=== PATIENT | male | born 1950 | race Caucasian/White ===

== ENCOUNTER 2019-11-22 01:01 | Inpatient (IN) | payer MEDICARE, MEDICAID ==
[2019-11-22] VITALS (8 sets, daily range): BP systolic 112–156; BP diastolic 62–78
[~2019-11-22] VITALS: Ht 175.3 cm; Wt 64.6 kg
[2019-11-22] MEDS ORDERED: FLUVOXAMINE MA100 MG PO (01:12)
[2019-11-22] MEDS ORDERED: OXYBUTYNIN CHLOR5 M1 ORAL (01:12)
[2019-11-22] MEDS ORDERED: BENZTROPINE ME0.5 MG PO (01:12)
[2019-11-22] MEDS ORDERED: FAMOTIDINE20 MG ORAL (01:12)
[2019-11-22] MEDS ORDERED: RISPERDAL2 MG ORAL (01:12)
[2019-11-22] MEDS ORDERED: LISINOPRIL10 MG ORAL (01:12)
--- NOTE | 2019-11-22 01:15 | NUR ---
ED Nurse Note: pt presents to ED via EMS arrival LAFD RA 29 for SOB x 5 hours. pt comes from [facility]. per EMS, pt's SpO2 was 85% on room air so they put him on a non rebreather mask which brought his saturation to 96%. pt came with IV in R hand that is patent and intact. pt is AO x 3 and approrpiately follows commands. he has a cough but does not know how long he has had it for.
[2019-11-22] MEDS: Ipratropium 0.02% Inh Soln 2.5ml UD HHN SCH ×3 (01:18→02:39)
[2019-11-22] MEDS: Albuterol ud Inhalation HHN SCH ×3 (01:18→02:39)
--- NOTE | 2019-11-22 01:20 | Emergency Room Report ---
History of Present Illness General Chief Complaint: Dyspnea/Respdistress Source: Medical Record, EMS Present Illness HPI 69-year-old male presents ED for evaluation. Brought in by EMS from psychiatric facility [id number]. Reported shortness of breath tonight. Congested. O2 sats low on room air. Placed on nonrebreather. Patient states he does feel better. Denies chest pain. Still states he feels short of breath. Denies fevers or chills. Has a cough. Productive. Patient is a poor historian and is unable to provide additional history. No other aggravating relieving factors. No other associated symptoms Allergies: Coded Allergies: No Known Allergies (Unverified , 12/09/15) Patient History Past Medical History: HTN, psych hx Pertinent Family History: none Social History: Denies: smoking, alcohol use, drug use Immunizations: UTD Reviewed Nursing Documentation: PMH: Agreed; PSxH: Agreed Nursing Documentation-PMH Hx Hypertension: Yes Hx Gastrointestinal Problems: Yes History Of Psychiatric Problem: Yes Review of Systems All Other Systems: limited Physical Exam Vital Signs Date Time Temp Pulse Resp B/P (MAP) Pulse Ox O2 Delivery O2 Flow Rate FiO2 11/22/19 01:03 98.8 98 20 112/74 (87) 94 15.0 Sp02 EP Interpretation: reviewed, normal General Appearance: no apparent distress, alert, GCS 15, non-toxic Head: normocephalic, atraumatic Eyes: bilateral eye normal inspection, bilateral eye PERRL ENT: hearing grossly normal, normal pharynx, no angioedema, normal voice Neck: full range of motion, supple/symm/no masses Respiratory: chest non-tender, decreased breath sounds, crackles, speaking full sentences, wheezing Cardiovascular #1: regular rate, rhythm, no edema Cardiovascular #2: 2+ carotid (R), 2+ carotid (L), 2+ radial (R), 2+ radial (L) , 2+ dorsalis pedis (R), 2+ dorsalis pedis (L) Gastrointestinal: normal bowel sounds, non tender, soft, non-distended, no guarding, no rebound Rectal: deferred Genitourinary: normal inspection, no CVA tenderness Musculoskeletal: back normal, normal range of motion, gait/station normal, non- tender Neurologic: alert, motor strength/tone normal, oriented x3, sensory intact, responsive, speech normal Psychiatric: judgement/insight normal, memory normal, mood/affect normal, no suicidal/homicidal ideation Reflexes: 3+ bicep (R), 3+ bicep (L), 3+ tricep (R), 3+ tricep (L), 3+ knee (R) , 3+ knee (L) Skin: other - see nursing skin notes Lymphatic: no adenopathy Medical Decision Making Diagnostic Impression: Primary Impression: Pneumonia Qualified Codes: J18.9 - Pneumonia, unspecified organism Additional Impression: Dyspnea Qualified Codes: R06.00 - Dyspnea, unspecified ER Course Hospital Course 69-year-old M presenting to ED with respiratory distress, wheezing and crackles Differential diagnoses include: Pneumonia, CHF exacerbation, pneumothorax, fluid overload Clinical course Patient placed on stretcher. On hospital monitor with hypoxia on room air. After initial history and physical, I ordered nebulizer treatments. I ordered labs, IV fluids, EKG, chest x-ray, blood cultures, UA. Patient placed on nasal cannula with O2 saturation improving Labs -leukocytosis noted, hemoglobin/hematocrit stable, electrolytes okay, lactate okay troponins negative, BNP ok EKG - NSR, no acute ischemic changes interpreted by me CXR - L lower lobe infiltrate Patient O2 sat remains above 90% on nasal cannula. given abx Case discussed with Dr. Rockwell and he agreed to the patient to his service for further care and support I feel this is a highly complex case requiring extensive working including EKG/ Rhythm strip, Xray/CT/US, Blood/urine lab work, repeat exams while in ED, and administration of strong opiates/narcotics for pain control, admission to hospital or close patient follow up. Diagnosis - pneumonia. dyspnea Patient admitted to telemetry in serious condition Labs Test 11/22/19 01:11 White Blood Count 12.0 K/UL (4.8-10.8) Red Blood Count 5.13 M/UL (4.70-6.10) Hemoglobin 15.7 G/DL (14.2-18.0) Hematocrit 45.9 % (42.0-52.0) Mean Corpuscular Volume 90 FL (80-99) Mean Corpuscular Hemoglobin 30.7 PG (27.0-31.0) Mean Corpuscular Hemoglobin Concent 34.3 G/DL (32.0-36.0) Red Cell Distribution Width 12.8 % (11.6-14.8) Platelet Count 179 K/UL (150-450) Mean Platelet Volume 7.5 FL (6.5-10.1) Neutrophils (%) (Auto) 78.4 % (45.0-75.0) Lymphocytes (%) (Auto) 12.5 % (20.0-45.0) Monocytes (%) (Auto) 7.8 % (1.0-10.0) Eosinophils (%) (Auto) 0.5 % (0.0-3.0) Basophils (%) (Auto) 0.7 % (0.0-2.0) Sodium Level 137 MMOL/L (136-145) Potassium Level 4.2 MMOL/L (3.5-5.1) Chloride Level 102 MMOL/L (98-107) Carbon Dioxide Level 35 MMOL/L (21-32) Anion Gap 0 mmol/L (5-15) Blood Urea Nitrogen 19 mg/dL (7-18) Creatinine 1.2 MG/DL (0.55-1.30) Estimat Glomerular Filtration Rate > 60 mL/min (>60) Glucose Level 104 MG/DL (74-106) Lactic Acid Level 0.90 mmol/L (0.4-2.0) Calcium Level 8.7 MG/DL (8.5-10.1) Total Bilirubin 0.7 MG/DL (0.2-1.0) Aspartate Amino Transf (AST/SGOT) 20 U/L (15-37) Alanine Aminotransferase (ALT/SGPT) 18 U/L (12-78) Alkaline Phosphatase 119 U/L (46-116) Troponin I 0.000 ng/mL (0.000-0.056) Pro-B-Type Natriuretic Peptide 39 pg/mL (0-125) Total Protein 7.3 G/DL (6.4-8.2) Albumin 3.1 G/DL (3.4-5.0) Globulin 4.2 g/dL Albumin/Globulin Ratio 0.7 (1.0-2.7) EKG Diagnostic Results Rate: normal Rhythm: NSR ST Segments: no acute changes ASA given to the pt in ED: No Rhythm Strip Diag. Results EP Interpretation: yes Rhythm: NSR, no PVC's, other - PACs Chest X-Ray Diagnostic Results Chest X-Ray Diagnostic Results : Chest X-Ray Ordered: Yes # of Views/Limited/Complete: 1 View Indication: Shortness of Breath EP Interpretation: Yes Interpretation: no effusion, no pneumothorax, other - consolidation LLL Impression: Other - pneumonia Electronically Signed by: Electronically signed by Jesus Rice MD Last Vital Signs Date Time Temp Pulse Resp B/P (MAP) Pulse Ox O2 Delivery O2 Flow Rate FiO2 11/22/19 01:03 98.8 98 20 112/74 (87) 94 15.0 Status: improved Disposition: ADMITTED INPATIENT Condition: Serious Jesus Rice MD Nov 22, 2019 01:20
[2019-11-22 01:31] LABS: BASOPHILS % (AUTO) 0.7 % (0.0-2.0); EOSINOPHILS % (AUTO) 0.5 % (0.0-3.0); HEMATOCRIT 45.9 % (42.0-52.0); HEMOGLOBIN 15.7 G/DL (14.2-18.0); LYMPHOCYTES % (AUTO) 12.5 % (20.0-45.0); MEAN CORPUSCULAR VOLUME 90 FL (80-99); MONOCYTES % (AUTO) 7.8 % (1.0-10.0); NEUTROPHILS % (AUTO) 78.4 % (45.0-75.0); PLATELET COUNT 179 K/UL (150-450); RED BLOOD COUNT 5.13 M/UL (4.70-6.10); RED CELL DISTRIBUTION WIDTH 12.8 % (11.6-14.8)
[2019-11-22 01:44] LABS: ANION GAP 0 mmol/L (5-15); BLOOD UREA NITROGEN 19 mg/dL (7-18); CALCIUM 8.7 MG/DL (8.5-10.1); CARBON DIOXIDE 35 MMOL/L (21-32); CHLORIDE 102 MMOL/L (98-107); CREATININE 1.2 MG/DL (0.55-1.30); POTASSIUM 4.2 MMOL/L (3.5-5.1); SODIUM 137 MMOL/L (136-145)
--- NOTE | 2019-11-22 01:45 | NUR ---
ED Nurse Note: pt unable to provide a urine sample at this time. ERMD aware
[2019-11-22 01:55] LABS: ALANINE AMINOTRANSFERASE 18 U/L (12-78); ALBUMIN 3.1 G/DL (3.4-5.0); ALBUMIN/GLOBULIN RATIO 0.7 (1.0-2.7); ALKALINE PHOSPHATASE 119 U/L (46-116); ASPARTATE AMINO TRANSFERASE 20 U/L (15-37); BILIRUBIN,TOTAL 0.7 MG/DL (0.2-1.0)
--- NOTE | 2019-11-22 02:46 | NUR ---
ED Nurse Note: repoort given to ALBERT Solorzano
--- NOTE | 2019-11-22 02:47 | NUR ---
NURSE NOTES: Received pt from ALBERT Altman. Pt transported from ER via gurney. Pt placed on bus driver/monitor, vitals taken, and placed on 4 L oxygen via NC, with HOB elevated. Bed locked in lowest position, bed alarm on, call light within reach. Fall precautions implemented. Pt has moderately garbled speech. Pt able to verbalize name, day, location, but not why he came in the hospital. Oriented pt to room and floor. Will contact HCP for admission orders. Iv site running abx from ER.
[2019-11-22] MEDS ORDERED: Albuterol/Ipratropium 3ml neb HHN PRN (06:30)
[2019-11-22] MEDS: D5 1/2NS 1,000 ML IV SCH ×2 (06:44→22:58)
--- NOTE | 2019-11-22 07:31 | NUR ---
NURSE NOTES: Received patient from ALBERT Solorzano. in bed with episodes of forgetfulness. Pt is A/Ox1. sack sewer is in placed; pt is in NSR. IV site intact, asymptomatic, and patent. Bed is in the lowest position and locked. Call light and beside table are within reach. No signs/symptoms of acute distress noted at this time. Pt denies any pain. Will continue with the plan of care.
--- NOTE | 2019-11-22 07:31 | NUR ---
report given to ALBERT burris. Endorsed plan of care Addendum: 11/22/19 at 0731 by JENIFFER BARRIENTOS RN report given to ALBERT Romo. Endorsed plan of care
[2019-11-22] MEDS: Lisinopril 10mg tab ORAL SCH (08:49)
[2019-11-22] MEDS: Heparin 5000 units/ml inj SUBQ SCH ×2 (08:51→22:04)
[2019-11-22 09:04] LABS: BASOPHILS % (AUTO) 0.7 % (0.0-2.0); EOSINOPHILS % (AUTO) 0.6 % (0.0-3.0); HEMATOCRIT 45.7 % (42.0-52.0); HEMOGLOBIN 15.4 G/DL (14.2-18.0); LYMPHOCYTES % (AUTO) 11.6 % (20.0-45.0); MEAN CORPUSCULAR VOLUME 90 FL (80-99); MONOCYTES % (AUTO) 7.8 % (1.0-10.0); NEUTROPHILS % (AUTO) 79.3 % (45.0-75.0); PLATELET COUNT 183 K/UL (150-450); RED BLOOD COUNT 5.08 M/UL (4.70-6.10); RED CELL DISTRIBUTION WIDTH 13.1 % (11.6-14.8); WHITE BLOOD COUNT 10.4 K/UL (4.8-10.8)
[2019-11-22 09:22] LABS: ANION GAP 3 mmol/L (5-15); BLOOD UREA NITROGEN 17 mg/dL (7-18); CALCIUM 8.3 MG/DL (8.5-10.1); CARBON DIOXIDE 33 MMOL/L (21-32); CHLORIDE 104 MMOL/L (98-107); CREATININE 1.1 MG/DL (0.55-1.30); POTASSIUM 4.1 MMOL/L (3.5-5.1); SODIUM 140 MMOL/L (136-145)
[2019-11-22] MEDS: Levofloxacin 500mg tab ORAL SCH (11:15)
--- NOTE | 2019-11-22 11:15 | Diagnostic Imaging Report ---
Indication: Shortness of breath Technique: One view of the chest Comparison: none Findings: Patient is rotated to the right. The lungs and pleural spaces are clear. The heart size is normal. There are degenerative changes of the thoracic spine Impression: No acute process
--- NOTE | 2019-11-22 13:40 | NUR ---
PT EVALUATION NOTE Patient seen for initial evaluation. Patient presents with generalized weakness and decreased balance which impairs patient's ability to perform mobility tasks safely. Patient requires SBA for bed mobility and CGA for transfers with FWW. Patient able to ambulate 150 ft with CGA/min assist and FWW, cues for safety precautions and posture. Patient will benefit from skilled inpatient PT intervention to address strength, balance and safety for improved level of independence with functional mobility. Recommend return to board and care facility at discharge once medically cleared by MD. Addendum: 11/22/19 at 1418 by KEYSHAWN HANNA PT Amended: Links added.
[2019-11-22] MEDS ORDERED: cefTRIAXone 1 GM in D5W 55 ML IVPB SCH (14:00)
--- NOTE | 2019-11-22 14:30 | NUR ---
*-* INSURANCE *-* ALL AVAILABLE CLINICALS HAVE BEEN FAXED TO: [employer] REF# [id number] PH#[phone] FAX#[phone] REVIEWS/CLINICALS
--- NOTE | 2019-11-22 14:59 | NUR ---
NURSE NOTES: pt alert with confusion, getting out of bed, unsteady, patient was placed by the station, bed alarm on, call light in reached, PT taina completed, then reported that pt pulling his heplock, and heart monitor, Dr Cruz returned call and was informed and gave order for restraint.
--- NOTE | 2019-11-22 15:12 | NUR ---
CASE MANAGEMENT:REVIEW 69 YR OLD MALE BIBA FROM [facility] CC: SOB. 85% ON RA SI: PNEUMONIA. DYSPNEA 98.7 98 20 112/74 94% ON 15L VIA NON REBREATHER WBC+12.0 IS: DUONEB HHN Q15MIN 500CC NS BOLUS IV LEVAQUIN CHEST XRAY : TO TELEMETRY DCP: FROM [facility]
--- NOTE | 2019-11-22 17:00 | Consultation ---
DATE OF CONSULTATION: 11/22/2019 PULMONARY CONSULTATION CONSULTING PHYSICIAN: Wu Cruz M.D. HISTORY OF PRESENT ILLNESS: This is a 69-year-old male who comes to hospital with shortness of breath. He states he is short of breath and reports chest congestion. He was found to be borderline hypoxic on room air per ER report. Per my review of records, he has saturated 98% and currently is on low-flow oxygen. The patient is unable to provide any further history. Denies any chest pain. Denies fever or chills. He reports a cough. PAST HISTORY: Hypertension, underlying psychiatric history. SOCIAL HISTORY: Denies alcohol or tobacco usage. SURGERIES: None reported. REVIEW OF SYSTEMS: Denies any headaches, hematemesis, melena, hematochezia, night sweats, or weight loss. PHYSICAL EXAMINATION: GENERAL: Reveals a 69-year-old male. Appears to be disheveled. HEENT: Unremarkable. LUNGS: Clear breath sounds bilaterally with normal heart sounds. ABDOMEN: Soft. EXTREMITIES: There is no edema. LABORATORY DATA: Lab testing shows white count 12,000 now 10.4. Chemistries are normal. Troponin negative. Lactic acid negative. Nasal swab is negative for influenza. IMAGING STUDIES: Per report are unremarkable. IMPRESSION: 1. Subjective dyspnea. 2. Suspect underlying bronchitis. 3. Borderline hypoxemia. DISCUSSION: ER documents a left lower lobe infiltrate. I will presume this to represent a pneumonic process and start the patient on Levaquin. He received 750 in the emergency room yesterday. I will start him on 5 mg p.o. daily. Also add Rocephin. We will follow as jewel stripper. Wu Cruz M.D. DR: GLADYS JOB#: [id number] CC:
--- NOTE | 2019-11-22 19:00 | History and Physical Report ---
DATE OF ADMISSION: 11/22/2019 TIME SEEN: Approximate time is 12 noon. CONSULTANTS: 1. Wu Cruz M.D. 2. Josué Shah M.D. 3. Fabian Lanza M.D. CHIEF COMPLAINT: Shortness of breath, wheeze, flu-like symptoms. BRIEF HISTORY: This is a 69-year-old male from [facility], presented with above-mentioned diagnosis for about two days of wheezing, short of breath. He also had psych history, came to [facility], diagnosed with the above, admitted to telemetry for further care. Currently, calm, in wheelchair , slightly confused, slight short of breath. No complaint. REVIEW OF SYSTEMS: No chest pain. Slight short of breath. No nausea, vomiting, or diarrhea. PAST MEDICAL HISTORY: Includes weakness, psych disorder. PAST SURGICAL HISTORY: None. ALLERGIES: Denies. MEDICATION: Include ceftriaxone, levofloxacin, heparin, lisinopril, Risperdal, albuterol, Zofran. SOCIAL HISTORY: Positive smoking. No alcohol. No intravenous drug abuse. FAMILY HISTORY: Noncontributory. PHYSICAL EXAMINATION: GENERAL: Calm in bed, oriented x1, in no acute distress. VITAL SIGNS: Temperature 98 degrees, pulse 95, respirations 20, blood pressure 135/74. CARDIOVASCULAR: No murmur. LUNGS: Poor air exchange. ABDOMEN: Bowel sounds distant. EXTREMITIES: Show no cyanosis, clubbing, or edema. NEUROLOGIC: The patient moves all extremities, slightly weak. The patient uses a wheelchair. LABORATORY AND DIAGNOSTIC DATA: Labs at this time show initial white count 12, now CBC is normal. BMP shows CO2 33, glucose 121 otherwise troponin 0.00, albumin 3.1. ASSESSMENT: 1. Shortness breath. 2. Wheeze. 3. Flu-like symptoms. 4. Psych history. 5. Weakness. 6. Malnutrition. PLAN: 1. O2 and pulmonary treatment. 2. Antibiotics per Infectious Disease. 3. Blood pressure control. 4. PT/OT, dietary followup. 5. CBC BMP in the morning. William Rockwell D.O. DR: IVAN JOB#: [id number] CC:
--- NOTE | 2019-11-22 19:45 | NUR ---
NURSE NOTES: Received patient from ALBERT Rivera, stable, confused, bilateral soft restraints, skin intact, IV site asymptomatic, intact, bed low&locked, side rails upx3, call light within reach , will continue to monitor and reassess
--- NOTE | 2019-11-22 19:46 | NUR ---
HAND-OFF: Report given to Renay PRICE. Patient is in stable condition.
[2019-11-23] VITALS: BP 156/89
[2019-11-23 04:00] VITALS: BP 144/80
[2019-11-23 07:26] LABS: EOSINOPHILS % (AUTO) 3.4 % (0.0-3.0); HEMATOCRIT 41.9 % (42.0-52.0); HEMOGLOBIN 14.5 G/DL (14.2-18.0); LYMPHOCYTES % (AUTO) 25.4 % (20.0-45.0); MEAN CORPUSCULAR VOLUME 89 FL (80-99); MONOCYTES % (AUTO) 9.4 % (1.0-10.0); NEUTROPHILS % (AUTO) 60.8 % (45.0-75.0); PLATELET COUNT 183 K/UL (150-450); RED BLOOD COUNT 4.69 M/UL (4.70-6.10); WHITE BLOOD COUNT 6.2 K/UL (4.8-10.8)
--- NOTE | 2019-11-23 07:52 | NUR ---
HAND-OFF: Report given to ALBERT Vilchis, patient in stable codition, plan of care endorsed.
[2019-11-23 07:57] LABS: ANION GAP 7 mmol/L (5-15); BLOOD UREA NITROGEN 11 mg/dL (7-18); CALCIUM 8.6 MG/DL (8.5-10.1); CARBON DIOXIDE 31 MMOL/L (21-32); CHLORIDE 105 MMOL/L (98-107); CREATININE 0.9 MG/DL (0.55-1.30); POTASSIUM 3.6 MMOL/L (3.5-5.1); SODIUM 143 MMOL/L (136-145)
[2019-11-23 08:00] VITALS: BP 149/89
--- NOTE | 2019-11-23 08:00 | NUR ---
NURSE NOTES: Patient stable AOx1, confused. No complaints at this time no s/sx of distress. RR even and unlabored on RA. BL wrist restraints on with good ROM, sensation and circulation intact and no swelling. Reorientation efforts ineffective. IV fluids infusing. Side rails upx2, call light within reach, bed low and locked. Will continue to monitor.
[2019-11-23] MEDS: Levofloxacin 500mg tab ORAL SCH (08:27)
[2019-11-23] MEDS: Lisinopril 10mg tab ORAL SCH (08:28)
[2019-11-23] MEDS: Heparin 5000 units/ml inj SUBQ SCH ×2 (08:31→22:14)
--- NOTE | 2019-11-23 09:11 | Pulmonology Progress Note ---
Assessment/Plan Assessment/Plan IMPRESSION: 1. Subjective dyspnea. 2. Acute bronchitis. 3. Borderline hypoxemia. Now resolved DISCUSSION: ER documents a left lower lobe infiltrate. Final radiology reading denotes normal CXR. I will follow as help desk operator. OK to discharge on empiric PO abx Wu Cruz M.D. Subjective Interval Events: saturating better on RA; all labs normal Constitutional: Reports: no symptoms HEENT: Repors: no symptoms Respiratory: Reports: no symptoms Cardiovascular: Reports: no symptoms Gastrointestinal/Abdominal: Reports: no symptoms Allergies: Coded Allergies: No Known Allergies (Unverified , 12/09/15) Objective Last 24 Hour Vital Signs Date Time Temp Pulse Resp B/P (MAP) Pulse Ox O2 Delivery O2 Flow Rate FiO2 11/23/19 08:28 149/89 11/23/19 04:00 75 11/23/19 04:00 97.9 68 20 144/80 (101) 92 11/23/19 01:04 86 19 97 Room Air 84 19 91 11/23/19 01:04 86 19 91 Room Air 11/23/19 00:00 98 11/23/19 00:00 97.9 74 18 156/89 (111) 92 11/22/19 21:00 Nasal Cannula 4.0 11/22/19 20:00 98.4 72 18 136/73 (94) 90 11/22/19 20:00 81 11/22/19 16:00 80 11/22/19 16:00 98.4 84 20 129/78 (95) 95 11/22/19 12:30 100.8 11/22/19 12:00 90 11/22/19 12:00 106.0 90 20 123/72 (89) 95 11/22/19 11:39 100.8 Intake and Output 11/22/19 11/23/19 19:00 07:00 Intake Total 740 ml 140 ml Balance 740 ml 140 ml Intake Oral 740 ml 140 ml # Voids 2 General Appearance: no acute distress HEENT: normocephalic Respiratory/Chest: chest wall non-tender, lungs clear Cardiovascular: normal peripheral pulses, regular rhythm Microbiology Date/Time Source Procedure Growth Status 11/22/19 01:20 Blood Blood Culture - Preliminary NO GROWTH AFTER 24 HOURS Resulted 11/22/19 01:11 Blood Blood Culture - Preliminary NO GROWTH AFTER 24 HOURS Resulted 11/22/19 01:11 Nasal Nares - Final Complete 11/22/19 01:11 Nasal Nares - Final Complete Laboratory Tests 11/23/19 06:14: White Blood Count 6.2, Red Blood Count 4.69L, Hemoglobin 14.5, Hematocrit 41.9L , Mean Corpuscular Volume 89, Mean Corpuscular Hemoglobin 31.0, Mean Corpuscular Hemoglobin Concent 34.7, Red Cell Distribution Width 13.0, Platelet Count 183, Mean Platelet Volume 7.4, Neutrophils (%) (Auto) 60.8, Lymphocytes (% ) (Auto) 25.4, Monocytes (%) (Auto) 9.4, Eosinophils (%) (Auto) 3.4H, Basophils (%) (Auto) 1.0, Sodium Level 143, Potassium Level 3.6, Chloride Level 105, Carbon Dioxide Level 31, Anion Gap 7, Blood Urea Nitrogen 11, Creatinine 0.9, Estimat Glomerular Filtration Rate > 60, Glucose Level 84, Calcium Level 8.6 Current Medications Medications (Trade) Dose Ordered Sig/Reyna Route PRN Reason Start Time Stop Time Status Last Admin Dose Admin Albuterol/ Ipratropium (Albuterol/ Ipratropium) 3 ml Q6H PRN HHN Shortness of Breath 11/22/19 06:30 11/27/19 06:29 11/23/19 01:03 Ceftriaxone Sodium 1 gm/ Dextrose 55 ml @ 110 mls/hr Q24H IVPB 11/22/19 14:00 11/29/19 13:59 11/22/19 14:42 Dextrose/Sodium Chloride 1,000 ml @ 60 mls/hr [id number] IV 11/22/19 06:30 12/22/19 06:29 11/22/19 22:58 Famotidine (Pepcid) 20 mg DAILY ORAL 11/22/19 09:00 12/22/19 08:59 11/23/19 08:27 Heparin Sodium (Porcine) (Heparin 5000 units/ml) 5,000 units EVERY 12 HOURS SUBQ 11/22/19 09:00 12/22/19 08:59 11/23/19 08:31 Levofloxacin (Levaquin) 500 mg DAILY ORAL 11/22/19 10:35 11/29/19 10:34 11/23/19 08:27 Lisinopril (ZestriL) 10 mg DAILY ORAL 11/22/19 09:00 12/22/19 08:59 11/23/19 08:28 Ondansetron HCl (Zofran) 4 mg Q6HR PRN IVP Nausea & Vomiting 11/22/19 02:15 Risperidone (RisperDAL) 3 mg BID ORAL 11/22/19 09:00 12/22/19 08:59 11/23/19 08:27 Wu Cruz MD Nov 23, 2019 09:11
--- NOTE | 2019-11-23 09:37 | General Progress Note ---
Assessment/Plan Problem List: (1) Weakness generalized ICD Codes: R53.1 - Weakness SNOMED: 12622166 (2) Flu-like symptoms ICD Codes: R68.89 - Other general symptoms and signs SNOMED: 784091332 (3) Dyspnea ICD Codes: R06.00 - Dyspnea, unspecified SNOMED: 474875017 Qualifiers: Qualified Codes: R06.00 - Dyspnea, unspecified (4) Pneumonia ICD Codes: J18.9 - Pneumonia, unspecified organism SNOMED: 416851358 Qualifiers: Qualified Codes: J18.9 - Pneumonia, unspecified organism (5) Psychiatric disorder ICD Codes: F99 - Mental disorder, not otherwise specified SNOMED: 72596923 Status: unchanged Assessment/Plan: o2 pulm tx abx psyc tx pt diet eval cbc bmp am dc plan w hh Subjective Allergies: Coded Allergies: No Known Allergies (Unverified , 12/09/15) All Systems: reviewed and negative except above Subjective sl confused in bed Objective Last 24 Hour Vital Signs Date Time Temp Pulse Resp B/P (MAP) Pulse Ox O2 Delivery O2 Flow Rate FiO2 11/23/19 08:28 149/89 11/23/19 04:00 75 11/23/19 04:00 97.9 68 20 144/80 (101) 92 11/23/19 01:04 86 19 97 Room Air 84 19 91 11/23/19 01:04 86 19 91 Room Air 11/23/19 00:00 98 11/23/19 00:00 97.9 74 18 156/89 (111) 92 11/22/19 21:00 Nasal Cannula 4.0 11/22/19 20:00 98.4 72 18 136/73 (94) 90 11/22/19 20:00 81 11/22/19 16:00 80 11/22/19 16:00 98.4 84 20 129/78 (95) 95 11/22/19 12:30 100.8 11/22/19 12:00 90 11/22/19 12:00 106.0 90 20 123/72 (89) 95 11/22/19 11:39 100.8 Intake and Output 11/22/19 11/23/19 19:00 07:00 Intake Total 740 ml 140 ml Balance 740 ml 140 ml Intake Oral 740 ml 140 ml # Voids 2 Laboratory Tests 11/23/19 06:14: White Blood Count 6.2, Red Blood Count 4.69L, Hemoglobin 14.5, Hematocrit 41.9L , Mean Corpuscular Volume 89, Mean Corpuscular Hemoglobin 31.0, Mean Corpuscular Hemoglobin Concent 34.7, Red Cell Distribution Width 13.0, Platelet Count 183, Mean Platelet Volume 7.4, Neutrophils (%) (Auto) 60.8, Lymphocytes (% ) (Auto) 25.4, Monocytes (%) (Auto) 9.4, Eosinophils (%) (Auto) 3.4H, Basophils (%) (Auto) 1.0, Sodium Level 143, Potassium Level 3.6, Chloride Level 105, Carbon Dioxide Level 31, Anion Gap 7, Blood Urea Nitrogen 11, Creatinine 0.9, Estimat Glomerular Filtration Rate > 60, Glucose Level 84, Calcium Level 8.6 Height (Feet): 5 Height (Inches): 9.00 Weight (Pounds): 142 General Appearance: lethargic, confused EENT: normal ENT inspection Neck: normal alignment Cardiovascular: normal peripheral pulses, normal rate, regular rhythm Respiratory/Chest: chest wall non-tender, lungs clear, normal breath sounds Abdomen: normal bowel sounds, non tender, soft Extremities: normal inspection Edema: no edema noted Arm (L), no edema noted Arm (R), no edema noted Leg (L), no edema noted Leg (R), no edema noted Pedal (L), no edema noted Pedal (R), no edema noted Generalized Neurologic: motor weakness Skin: normal pigmentation, warm/dry William Rockwell DO Nov 23, 2019 09:37
[2019-11-23 12:00] VITALS: BP 145/72
--- NOTE | 2019-11-23 12:24 | Consultation ---
History of Present Illness General Date patient seen: Nov 23, 2019 Chief Complaint: Dyspnea/Respdistress Present Illness HPI 69 y/o M with hx of HTN, underlying psychiatric history, tobacco abuse, psychiatric facility [id number] resident presented to ED on 11/22 with 2 days of SOB, wheezing chest congestion, productive cough and hypoxia. Denied chest pain, fever, chills Allergies: Coded Allergies: No Known Allergies (Unverified , 12/09/15) Medication History Scheduled Famotidine* (Pepcid 20mg tablet*), 20 MG ORAL DAILY, (Reported) Lisinopril* (Lisinopril*), 10 MG ORAL DAILY, (Reported) Risperidone* (Risperdal*), 3 MG ORAL BID, (Reported) Miscellaneous Medications Benztropine Mesylate* (Cogentin*), 1 MG PO, (Reported) Fluvoxamine Maleate (Fluvoxamine Maleate), 100 MG PO, (Reported) Oxybutynin Chloride (Oxybutynin Chloride), 5 MG ORAL, (Reported) Patient History Healthcare decision maker Resuscitation status Full Code Advanced Directive on File Patient History Narrative Pmhx: as above Shx: Positive smoking. No alcohol. No intravenous drug abuse. Fhx: non contributory Review of Systems All Other Systems: negative except mentioned in HPI Physical Exam Physical Exam Narrative GENERAL: Calm in bed, oriented x1, in no acute distress. CARDIOVASCULAR: No murmur. LUNGS: Poor air exchange. ABDOMEN: Bowel sounds distant. EXTREMITIES: Show no cyanosis, clubbing, or edema. NEUROLOGIC: The patient moves all extremities, slightly weak. The patient uses a wheelchair. Last 24 Hour Vital Signs Date Time Temp Pulse Resp B/P (MAP) Pulse Ox O2 Delivery O2 Flow Rate FiO2 11/23/19 09:00 Nasal Cannula 4.0 11/23/19 08:28 149/89 11/23/19 08:00 73 11/23/19 08:00 96.7 71 18 149/89 (109) 98 11/23/19 04:00 75 11/23/19 04:00 97.9 68 20 144/80 (101) 92 11/23/19 01:04 86 19 97 Room Air 84 19 91 11/23/19 01:04 86 19 91 Room Air 11/23/19 00:00 98 11/23/19 00:00 97.9 74 18 156/89 (111) 92 11/22/19 21:00 Nasal Cannula 4.0 11/22/19 20:00 98.4 72 18 136/73 (94) 90 11/22/19 20:00 81 11/22/19 16:00 80 11/22/19 16:00 98.4 84 20 129/78 (95) 95 11/22/19 12:30 100.8 Intake and Output 11/22/19 11/23/19 19:00 07:00 Intake Total 740 ml 140 ml Balance 740 ml 140 ml Intake Oral 740 ml 140 ml # Voids 2 Laboratory Tests Test 11/23/19 06:14 White Blood Count 6.2 K/UL (4.8-10.8) Red Blood Count 4.69 M/UL (4.70-6.10) L Hemoglobin 14.5 G/DL (14.2-18.0) Hematocrit 41.9 % (42.0-52.0) L Mean Corpuscular Volume 89 FL (80-99) Mean Corpuscular Hemoglobin 31.0 PG (27.0-31.0) Mean Corpuscular Hemoglobin Concent 34.7 G/DL (32.0-36.0) Red Cell Distribution Width 13.0 % (11.6-14.8) Platelet Count 183 K/UL (150-450) Mean Platelet Volume 7.4 FL (6.5-10.1) Neutrophils (%) (Auto) 60.8 % (45.0-75.0) Lymphocytes (%) (Auto) 25.4 % (20.0-45.0) Monocytes (%) (Auto) 9.4 % (1.0-10.0) Eosinophils (%) (Auto) 3.4 % (0.0-3.0) H Basophils (%) (Auto) 1.0 % (0.0-2.0) Sodium Level 143 MMOL/L (136-145) Potassium Level 3.6 MMOL/L (3.5-5.1) Chloride Level 105 MMOL/L (98-107) Carbon Dioxide Level 31 MMOL/L (21-32) Anion Gap 7 mmol/L (5-15) Blood Urea Nitrogen 11 mg/dL (7-18) Creatinine 0.9 MG/DL (0.55-1.30) Estimat Glomerular Filtration Rate > 60 mL/min (>60) Glucose Level 84 MG/DL (74-106) Calcium Level 8.6 MG/DL (8.5-10.1) Height (Feet): 5 Height (Inches): 9.00 Weight (Pounds): 142 Medications Current Medications Medications (Trade) Dose Ordered Sig/Reyna Route PRN Reason Start Time Stop Time Status Last Admin Dose Admin Albuterol/ Ipratropium (Albuterol/ Ipratropium) 3 ml Q6H PRN HHN Shortness of Breath 11/22/19 06:30 11/27/19 06:29 11/23/19 01:03 Ceftriaxone Sodium 1 gm/ Dextrose 55 ml @ 110 mls/hr Q24H IVPB 11/22/19 14:00 11/29/19 13:59 11/22/19 14:42 Dextrose/Sodium Chloride 1,000 ml @ 60 mls/hr [id number] IV 11/22/19 06:30 12/22/19 06:29 11/22/19 22:58 Famotidine (Pepcid) 20 mg DAILY ORAL 11/22/19 09:00 12/22/19 08:59 11/23/19 08:27 Heparin Sodium (Porcine) (Heparin 5000 units/ml) 5,000 units EVERY 12 HOURS SUBQ 11/22/19 09:00 12/22/19 08:59 11/23/19 08:31 Levofloxacin (Levaquin) 500 mg DAILY ORAL 11/22/19 10:35 11/29/19 10:34 11/23/19 08:27 Lisinopril (ZestriL) 10 mg DAILY ORAL 11/22/19 09:00 12/22/19 08:59 11/23/19 08:28 Ondansetron HCl (Zofran) 4 mg Q6HR PRN IVP Nausea & Vomiting 11/22/19 02:15 Risperidone (RisperDAL) 3 mg BID ORAL 11/22/19 09:00 12/22/19 08:59 11/23/19 08:27 Assessment/Plan Assessment/Plan: Abx: Ceftriaxone 11/22- Levaquin 11/22- Assessment: Sepsis Acute bronchitis -influenza sc neg -CXR: no acute process Fever Leukocytosis, SP HTN underlying psychiatric history tobacco abuse psychiatric facility [id number] resident Plan: -Continue empiric Levaquin #2 -D/c ceftriaxone #2 -f/u cx -Monitor CBC/CMP, temperatures -u/a w/ reflex Thank you for this consultation. Will continue to follow along with you. Discussed with Katie Steinberg M.D. Nov 23, 2019 12:24
--- NOTE | 2019-11-23 12:53 | NUR ---
*-*DISCHARGE PLANNING*-* PATIENT HAS BEEN REFERRED TO: [facility] P: [phone] F: [phone] *-* PATIENT IS ON SERVICE WITH AND THEY WILL CONTINUE TO FOLLOW PATIENT S/W KERWIN
--- NOTE | 2019-11-23 13:10 | NUR ---
*-* DISCHARGE PLANING*-* REFERRAL WAS FAXED TO [facility] , AND THEY DECLINED, ON SERVICE WITH [facility].
--- NOTE | 2019-11-23 13:59 | NUR ---
*-*DISCHARGE PLANNED *-* PATIENT HAS BEEN REFERRED TO: [facility] P: [phone] F: [phone] *-* PATIENT IS ON SERVICE WITH AND THEY WILL CONTINUE TO FOLLOW PATIENT S/W KERWIN
[2019-11-23 16:00] VITALS: BP 150/95
--- NOTE | 2019-11-23 16:11 | NUR ---
CASE MANAGEMENT:REVIEW 11/23/19 SI: SEPSIS. ACUTE BRONCHITIS 96.6 87 19 145/72 98% ON 4L/NC IS: RISPERDAL PO QHS LEVAQUIN PO QD HEPARIN SQ Q12 LISINOPRIL PO QD PEPCID PO QD IVF@60/HR : TELEMETRY STATUS
[2019-11-23] MEDS: D5 1/2NS 1,000 ML IV SCH (16:19)
--- NOTE | 2019-11-23 19:22 | NUR ---
NURSE NOTES: Received patient from ALBERT Vilchis, stable, confused, bilateral soft restraints, skin intact, IV site right hand asymptomatic, intact, bed low&locked, side rails upx3, call light within reach , will continue to monitor and reassess
--- NOTE | 2019-11-23 19:22 | NUR ---
HAND-OFF: Report given to Chaparrita Andrews RN. Patient stable. Plan of care endorsed.
[2019-11-23 20:00] VITALS: BP 154/101
--- NOTE | 2019-11-23 20:15 | Consultation ---
DATE OF CONSULTATION: 11/23/2019 CONSULTING PHYSICIAN: Josué Shah M.D. HISTORY OF PRESENT ILLNESS: The patient is a 69-year-old male who was admitted from a board and care facility came in due to wheeze and flu-like symptoms. The patient has a psychiatric history. He is confused and is a poor historian. He knows his name. He knows he is in the hospital; however, he is weak and more confused today than previous encounter. He is on bilateral soft restraints. In addition, the patient has a history of hypertension. The patient has been having episodes of agitation. PAST PSYCHIATRIC HISTORY: Significant for depression, OCD. PAST MEDICAL HISTORY: As above. ALLERGIES: No known drug allergies. SUBSTANCE ABUSE HISTORY: No known history of illicit drug use or alcohol. MENTAL STATUS EXAMINATION: The patient is having waxing waning consciousness. Confused, disoriented. Mood is agitated. Affect is flat. Thought process is concrete. Thought content, no suicidal or homicidal ideation. ASSESSMENT: [place] I OCD, schizophrenia by history. [place] II Deferred. [place] III As above. [place] IV Low. [place] V 20. PLAN: 1. The patient came in on risperidone 3 mg b.i.d. We will decrease it to 3 mg at bedtime. 2. We will restart his fluvoxamine as the patient maybe withdrawing from that medication. 3. We will continue to follow and readjust the medications. 4. Fluvoxamine is not on hospital formulary, therefore I will order the patient takes home medications. Josué Shah M.D. DR: NATHAN JOB#: [id number] CC:
[2019-11-24] VITALS: BP 136/94
[2019-11-24 04:00] VITALS: BP 153/96
--- NOTE | 2019-11-24 07:25 | NUR ---
HAND-OFF: Report given to ALBERT Vilchis,patient in stable condition, plan of care endorsed.
[2019-11-24 07:28] LABS: EOSINOPHILS % (AUTO) 2.1 % (0.0-3.0); HEMATOCRIT 44.5 % (42.0-52.0); HEMOGLOBIN 15.4 G/DL (14.2-18.0); LYMPHOCYTES % (AUTO) 21.2 % (20.0-45.0); MEAN CORPUSCULAR VOLUME 88 FL (80-99); MONOCYTES % (AUTO) 9.5 % (1.0-10.0); NEUTROPHILS % (AUTO) 66.3 % (45.0-75.0); PLATELET COUNT 219 K/UL (150-450); RED BLOOD COUNT 5.05 M/UL (4.70-6.10); RED CELL DISTRIBUTION WIDTH 12.5 % (11.6-14.8); WHITE BLOOD COUNT 5.9 K/UL (4.8-10.8)
[2019-11-24 07:36] LABS: ANION GAP 5 mmol/L (5-15); BLOOD UREA NITROGEN 11 mg/dL (7-18); CALCIUM 8.9 MG/DL (8.5-10.1); CARBON DIOXIDE 33 MMOL/L (21-32); CHLORIDE 106 MMOL/L (98-107); CREATININE 0.9 MG/DL (0.55-1.30); POTASSIUM 3.5 MMOL/L (3.5-5.1); SODIUM 144 MMOL/L (136-145)
[2019-11-24 08:00] VITALS: BP 133/84
[2019-11-24] MEDS: D5 1/2NS 1,000 ML IV SCH ×2 (09:16→15:33)
[2019-11-24] MEDS: Levofloxacin 500mg tab ORAL SCH (09:17)
[2019-11-24] MEDS: Lisinopril 10mg tab ORAL SCH (09:17)
[2019-11-24] MEDS: Heparin 5000 units/ml inj SUBQ SCH ×2 (09:25→20:24)
--- NOTE | 2019-11-24 09:25 | NUR ---
PT NOTE Attempted to see patient for PT treatment. Patient declining to participate with PT, unable to provide reason when asked. Caro PRICE notified, will re-attempt later as schedule permits.
--- NOTE | 2019-11-24 11:00 | NUR ---
NURSE NOTES: Spoke with charge nurse regarding discharge orders. Patient is confused AOx1 and is not safe for patient to return to board and care since he is unable to complete ADL's and follow up with his medical needs. shiatsu therapist will follow up with case management regarding possible SNIF placement instead.
[2019-11-24 12:00] VITALS: BP 128/69
--- NOTE | 2019-11-24 14:39 | Infectious Diseases Prog Note ---
Assessment/Plan Assessment/Plan Assessment: Sepsis Acute bronchitis -influenza sc neg -CXR: no acute process -Bcx NTD Fever; improving Leukocytosis, SP HTN underlying psychiatric history tobacco abuse psychiatric facility [facility] resident Plan: -Continue empiric Levaquin #3/5 -11/23 SP ceftriaxone #2 -f/u cx -Monitor CBC/CMP, temperatures -u/a w/ reflex Thank you for this consultation. Will continue to follow along with you. Discussed with RN Subjective Allergies: Coded Allergies: No Known Allergies (Unverified , 12/09/15) Subjective afebrile >36hrs no leukocytosis Bcx NTD Objective Vital Signs Last 24 Hour Vital Signs Date Time Temp Pulse Resp B/P (MAP) Pulse Ox O2 Delivery O2 Flow Rate FiO2 11/24/19 12:00 87 11/24/19 12:00 98.1 69 18 128/69 (88) 98 11/24/19 09:17 133/84 11/24/19 09:00 Nasal Cannula 4.0 11/24/19 08:00 71 11/24/19 08:00 97.8 74 16 133/84 (100) 97 11/24/19 07:28 99 Nasal Cannula 2.0 28 11/24/19 04:00 87 11/24/19 04:00 97.5 87 20 153/96 (115) 91 11/24/19 00:00 114 11/24/19 00:00 97.9 105 20 136/94 (108) 91 11/23/19 21:00 Nasal Cannula 4.0 11/23/19 21:00 Nasal Cannula 4.0 11/23/19 20:00 90 11/23/19 20:00 97.3 87 20 154/101 (118) 93 11/23/19 16:00 102 11/23/19 16:00 99.0 83 20 150/95 (113) 96 Height (Feet): 5 Height (Inches): 9.00 Weight (Pounds): 142 Objective GENERAL: Calm in bed, oriented x1, in no acute distress. CARDIOVASCULAR: No murmur. LUNGS: Poor air exchange. ABDOMEN: Bowel sounds distant. EXTREMITIES: Show no cyanosis, clubbing, or edema. NEUROLOGIC: The patient moves all extremities, slightly weak. The patient uses a wheelchair. Microbiology Date/Time Source Procedure Growth Status 11/22/19 01:20 Blood Blood Culture - Preliminary NO GROWTH AFTER 48 HOURS Resulted 11/22/19 01:11 Blood Blood Culture - Preliminary NO GROWTH AFTER 48 HOURS Resulted 11/22/19 01:11 Nasal Nares - Final Complete 11/22/19 01:11 Nasal Nares - Final Complete 11/21/19 21:50 Rectum - Final NO CARBAPENEM-RESISTANT ENTEROBACTERI... Complete 11/21/19 21:50 Rectum VRE Culture - Final NO VANCOMYCIN RESISTANT ENTEROCOCCUS ... Complete Laboratory Tests Test 11/24/19 06:03 White Blood Count 5.9 K/UL (4.8-10.8) Red Blood Count 5.05 M/UL (4.70-6.10) Hemoglobin 15.4 G/DL (14.2-18.0) Hematocrit 44.5 % (42.0-52.0) Mean Corpuscular Volume 88 FL (80-99) Mean Corpuscular Hemoglobin 30.6 PG (27.0-31.0) Mean Corpuscular Hemoglobin Concent 34.7 G/DL (32.0-36.0) Red Cell Distribution Width 12.5 % (11.6-14.8) Platelet Count 219 K/UL (150-450) Mean Platelet Volume 6.6 FL (6.5-10.1) Neutrophils (%) (Auto) 66.3 % (45.0-75.0) Lymphocytes (%) (Auto) 21.2 % (20.0-45.0) Monocytes (%) (Auto) 9.5 % (1.0-10.0) Eosinophils (%) (Auto) 2.1 % (0.0-3.0) Basophils (%) (Auto) 1.0 % (0.0-2.0) Sodium Level 144 MMOL/L (136-145) Potassium Level 3.5 MMOL/L (3.5-5.1) Chloride Level 106 MMOL/L (98-107) Carbon Dioxide Level 33 MMOL/L (21-32) H Anion Gap 5 mmol/L (5-15) Blood Urea Nitrogen 11 mg/dL (7-18) Creatinine 0.9 MG/DL (0.55-1.30) Estimat Glomerular Filtration Rate > 60 mL/min (>60) Glucose Level 95 MG/DL (74-106) Calcium Level 8.9 MG/DL (8.5-10.1) Current Medications Medications (Trade) Dose Ordered Sig/Reyna Route PRN Reason Start Time Stop Time Status Last Admin Dose Admin Albuterol/ Ipratropium (Albuterol/ Ipratropium) 3 ml Q6H PRN HHN Shortness of Breath 11/22/19 06:30 11/27/19 06:29 11/23/19 01:03 Dextrose/Sodium Chloride 1,000 ml @ 60 mls/hr [id number] IV 11/22/19 06:30 12/22/19 06:29 11/24/19 09:16 Famotidine (Pepcid) 20 mg DAILY ORAL 11/22/19 09:00 12/22/19 08:59 11/24/19 09:17 Heparin Sodium (Porcine) (Heparin 5000 units/ml) 5,000 units EVERY 12 HOURS SUBQ 11/22/19 09:00 12/22/19 08:59 11/24/19 09:25 Levofloxacin (Levaquin) 500 mg DAILY ORAL 11/22/19 10:35 11/29/19 10:34 11/24/19 09:17 Lisinopril (ZestriL) 10 mg DAILY ORAL 11/22/19 09:00 12/22/19 08:59 11/24/19 09:17 Ondansetron HCl (Zofran) 4 mg Q6HR PRN IVP Nausea & Vomiting 11/22/19 02:15 Risperidone (RisperDAL) 3 mg BEDTIME ORAL 11/23/19 21:00 12/23/19 20:59 11/23/19 22:14 Katie Sood M.D. Nov 24, 2019 14:39
--- NOTE | 2019-11-24 14:40 | General Progress Note ---
Assessment/Plan Problem List: (1) Weakness generalized ICD Codes: R53.1 - Weakness SNOMED: 99022417 (2) Flu-like symptoms ICD Codes: R68.89 - Other general symptoms and signs SNOMED: 157949414 (3) Dyspnea ICD Codes: R06.00 - Dyspnea, unspecified SNOMED: 210626077 Qualifiers: Qualified Codes: R06.00 - Dyspnea, unspecified (4) Pneumonia ICD Codes: J18.9 - Pneumonia, unspecified organism SNOMED: 717766412 Qualifiers: Qualified Codes: J18.9 - Pneumonia, unspecified organism (5) Psychiatric disorder ICD Codes: F99 - Mental disorder, not otherwise specified SNOMED: 91381350 Status: stable, progressing Assessment/Plan: o2 pulm tx abx psyc tx pt diet eval cbc bmp am dc plan snf Subjective Constitutional: Reports: weakness Allergies: Coded Allergies: No Known Allergies (Unverified , 12/09/15) All Systems: reviewed and negative except above Subjective sl confused in bed Objective Last 24 Hour Vital Signs Date Time Temp Pulse Resp B/P (MAP) Pulse Ox O2 Delivery O2 Flow Rate FiO2 11/24/19 12:00 87 11/24/19 12:00 98.1 69 18 128/69 (88) 98 11/24/19 09:17 133/84 11/24/19 09:00 Nasal Cannula 4.0 11/24/19 08:00 71 11/24/19 08:00 97.8 74 16 133/84 (100) 97 11/24/19 07:28 99 Nasal Cannula 2.0 28 11/24/19 04:00 87 11/24/19 04:00 97.5 87 20 153/96 (115) 91 11/24/19 00:00 114 11/24/19 00:00 97.9 105 20 136/94 (108) 91 11/23/19 21:00 Nasal Cannula 4.0 11/23/19 21:00 Nasal Cannula 4.0 11/23/19 20:00 90 11/23/19 20:00 97.3 87 20 154/101 (118) 93 11/23/19 16:00 102 11/23/19 16:00 99.0 83 20 150/95 (113) 96 Intake and Output 11/23/19 11/24/19 19:00 07:00 Intake Total 940 ml Output Total 1500 ml Balance -560 ml Intake Oral 280 ml IV Total 660 ml Output Urine Total 1500 ml # Voids 3 3 Laboratory Tests 11/24/19 06:03: White Blood Count 5.9, Red Blood Count 5.05, Hemoglobin 15.4, Hematocrit 44.5, Mean Corpuscular Volume 88, Mean Corpuscular Hemoglobin 30.6, Mean Corpuscular Hemoglobin Concent 34.7, Red Cell Distribution Width 12.5, Platelet Count 219, Mean Platelet Volume 6.6, Neutrophils (%) (Auto) 66.3, Lymphocytes (%) (Auto) 21.2, Monocytes (%) (Auto) 9.5, Eosinophils (%) (Auto) 2.1, Basophils (%) (Auto ) 1.0, Sodium Level 144, Potassium Level 3.5, Chloride Level 106, Carbon Dioxide Level 33H, Anion Gap 5, Blood Urea Nitrogen 11, Creatinine 0.9, Estimat Glomerular Filtration Rate > 60, Glucose Level 95, Calcium Level 8.9 Height (Feet): 5 Height (Inches): 9.00 Weight (Pounds): 142 General Appearance: lethargic EENT: normal ENT inspection Neck: normal alignment Cardiovascular: normal peripheral pulses, normal rate, regular rhythm Respiratory/Chest: chest wall non-tender, lungs clear, normal breath sounds Abdomen: normal bowel sounds, non tender, soft Extremities: normal inspection Edema: no edema noted Arm (L), no edema noted Arm (R), no edema noted Leg (L), no edema noted Leg (R), no edema noted Pedal (L), no edema noted Pedal (R), no edema noted Generalized Neurologic: motor weakness Skin: normal pigmentation, warm/dry William Rockwell DO Nov 24, 2019 14:40
--- NOTE | 2019-11-24 15:22 | NUR ---
*-* INSURANCE *-* ALL AVAILABLE CLINICALS HAVE BEEN FAXED TO: [facility] [employer] REF# [id number] PH#[phone] FAX#[phone] REVIEWS/CLINICALS
[2019-11-24] MEDS ORDERED: Albuterol/Ipratropium 3ml neb HHN PRN (15:30)
--- NOTE | 2019-11-24 15:31 | NUR ---
NURSE NOTES: Patient TRANSFER TO FLOOR: Patient transferred to 3E, per Dr. Rockwell. Report given to Idalia PRICE. Belongings with patient. Patient stable, confused.
--- NOTE | 2019-11-24 15:35 | NUR ---
NURSE NOTES: Patient arrived on unit via hospital bed. Patient is stable. VSS. Patient oriented to name and birthday but is not oriented to time, place, or purpose. Patient denies pain at this time. Skin is c/d/i. Scrotum is enlarged but does not cause patient discomfort at this time. Patient reconnected to IVF as ordered, IV patent. Patient is in bed in locked and lowest position with call light within reach and bed alarm on. Will continue to monitor.
--- NOTE | 2019-11-24 15:41 | NUR ---
*-*DISCHARGE PLANNING*-* PATIENT HAS BEEN REFERRED TO: [facility] P: [phone] F: [phone]
--- NOTE | 2019-11-24 15:46 | NUR ---
*-*DISCHARGE PLANNED*-* PATIENT HAS BEEN ACCEPTED AT: [facility] SKILLED RM#1-B S\W DIPAK *-*PENDING OFFICIAL DISCHARGE*-*
[2019-11-24 16:00] VITALS: BP 134/82
--- NOTE | 2019-11-24 16:00 | NUR ---
NURSE NOTES: Bilateral wrist restraints on patient. Circulation, sensation, and movement assessed by RN, bilateral extremities wnl. No swelling noted. Skin is intact. no discoloration noted. All safety measures provided. Will continue to monitor.
--- NOTE | 2019-11-24 16:23 | Pulmonology Progress Note ---
Assessment/Plan Assessment/Plan IMPRESSION: 1. Subjective dyspnea. 2. Acute bronchitis. 3. Borderline hypoxemia. Now resolved DISCUSSION: ER documents a left lower lobe infiltrate. Final radiology reading denotes normal CXR. I will follow as shoe treer. OK to discharge on empiric PO abx Wu Cruz M.D. Subjective Interval Events: None new Constitutional: Reports: no symptoms HEENT: Repors: no symptoms Respiratory: Reports: no symptoms Cardiovascular: Reports: no symptoms Gastrointestinal/Abdominal: Reports: no symptoms Allergies: Coded Allergies: No Known Allergies (Unverified , 12/09/15) Objective Last 24 Hour Vital Signs Date Time Temp Pulse Resp B/P (MAP) Pulse Ox O2 Delivery O2 Flow Rate FiO2 11/24/19 12:00 87 11/24/19 12:00 98.1 69 18 128/69 (88) 98 11/24/19 09:17 133/84 11/24/19 09:00 Nasal Cannula 4.0 11/24/19 08:00 71 11/24/19 08:00 97.8 74 16 133/84 (100) 97 11/24/19 07:28 99 Nasal Cannula 2.0 28 11/24/19 04:00 87 11/24/19 04:00 97.5 87 20 153/96 (115) 91 11/24/19 00:00 114 11/24/19 00:00 97.9 105 20 136/94 (108) 91 11/23/19 21:00 Nasal Cannula 4.0 11/23/19 21:00 Nasal Cannula 4.0 11/23/19 20:00 90 11/23/19 20:00 97.3 87 20 154/101 (118) 93 Intake and Output 11/23/19 11/24/19 19:00 07:00 Intake Total 940 ml Output Total 1500 ml Balance -560 ml Intake Oral 280 ml IV Total 660 ml Output Urine Total 1500 ml # Voids 3 3 General Appearance: no acute distress HEENT: normocephalic Respiratory/Chest: chest wall non-tender Cardiovascular: normal peripheral pulses Abdomen: normal bowel sounds Microbiology Date/Time Source Procedure Growth Status 11/22/19 01:20 Blood Blood Culture - Preliminary NO GROWTH AFTER 48 HOURS Resulted 11/22/19 01:11 Blood Blood Culture - Preliminary NO GROWTH AFTER 48 HOURS Resulted 11/22/19 01:11 Nasal Nares - Final Complete 11/22/19 01:11 Nasal Nares - Final Complete 11/21/19 21:50 Rectum - Final NO CARBAPENEM-RESISTANT ENTEROBACTERI... Complete 11/21/19 21:50 Rectum VRE Culture - Final NO VANCOMYCIN RESISTANT ENTEROCOCCUS ... Complete Laboratory Tests 11/24/19 06:03: White Blood Count 5.9, Red Blood Count 5.05, Hemoglobin 15.4, Hematocrit 44.5, Mean Corpuscular Volume 88, Mean Corpuscular Hemoglobin 30.6, Mean Corpuscular Hemoglobin Concent 34.7, Red Cell Distribution Width 12.5, Platelet Count 219, Mean Platelet Volume 6.6, Neutrophils (%) (Auto) 66.3, Lymphocytes (%) (Auto) 21.2, Monocytes (%) (Auto) 9.5, Eosinophils (%) (Auto) 2.1, Basophils (%) (Auto ) 1.0, Sodium Level 144, Potassium Level 3.5, Chloride Level 106, Carbon Dioxide Level 33H, Anion Gap 5, Blood Urea Nitrogen 11, Creatinine 0.9, Estimat Glomerular Filtration Rate > 60, Glucose Level 95, Calcium Level 8.9 Current Medications Medications (Trade) Dose Ordered Sig/Reyna Route PRN Reason Start Time Stop Time Status Last Admin Dose Admin Albuterol/ Ipratropium (Albuterol/ Ipratropium) 3 ml Q6H PRN HHN Shortness of Breath 11/24/19 15:30 11/27/19 15:29 Dextrose/Sodium Chloride 1,000 ml @ 60 mls/hr [id number] IV 11/24/19 15:30 12/22/19 06:29 11/24/19 15:33 Famotidine (Pepcid) 20 mg DAILY ORAL 11/25/19 09:00 12/22/19 08:59 Heparin Sodium (Porcine) (Heparin 5000 units/ml) 5,000 units EVERY 12 HOURS SUBQ 11/24/19 21:00 12/22/19 08:59 Levofloxacin (Levaquin) 500 mg DAILY ORAL 11/25/19 09:00 11/29/19 10:34 Lisinopril (ZestriL) 10 mg DAILY ORAL 11/25/19 09:00 12/22/19 08:59 Ondansetron HCl (Zofran) 4 mg Q6H PRN IVP Nausea & Vomiting 11/24/19 18:00 Risperidone (RisperDAL) 3 mg BEDTIME ORAL 11/24/19 21:00 12/23/19 20:59 Wu Cruz MD Nov 24, 2019 16:23
--- NOTE | 2019-11-24 19:20 | NUR ---
HAND-OFF: Report given to Sulaiman PRICE. Patient is stable.
[2019-11-24 20:00] VITALS: BP 156/81
--- NOTE | 2019-11-24 20:00 | NUR ---
NURSE NOTES: Patient received in bed, awake, confused, talkative, obeys commands. Appears restless, wheezing, patient's keep removing his nasal canula, but o2 sat at 95%. O2 NC reapplied. Moving around the bed and asking to be removed from restraints. When explained indications of restraints, patient verbalized understanding but forgets again after a few minutes. Bed alarm on, will continue close monitoring.
[2019-11-24] MEDS ORDERED: LORazepam 1mg tab ORAL PRN (21:30)
[2019-11-25] VITALS: BP 155/100
[2019-11-25 04:00] VITALS: BP 133/83
[2019-11-25 06:39] LABS: BASOPHILS % (AUTO) 1.5 % (0.0-2.0); EOSINOPHILS % (AUTO) 4.3 % (0.0-3.0); HEMATOCRIT 45.3 % (42.0-52.0); HEMOGLOBIN 15.9 G/DL (14.2-18.0); MEAN CORPUSCULAR VOLUME 89 FL (80-99); MONOCYTES % (AUTO) 8.8 % (1.0-10.0); NEUTROPHILS % (AUTO) 46.4 % (45.0-75.0); PLATELET COUNT 216 K/UL (150-450); RED BLOOD COUNT 5.08 M/UL (4.70-6.10); RED CELL DISTRIBUTION WIDTH 12.6 % (11.6-14.8); WHITE BLOOD COUNT 6.4 K/UL (4.8-10.8)
[2019-11-25 06:49] LABS: ANION GAP 5 mmol/L (5-15); BLOOD UREA NITROGEN 10 mg/dL (7-18); CALCIUM 9.1 MG/DL (8.5-10.1); CARBON DIOXIDE 32 MMOL/L (21-32); CHLORIDE 107 MMOL/L (98-107); CREATININE 0.9 MG/DL (0.55-1.30); POTASSIUM 3.9 MMOL/L (3.5-5.1); SODIUM 144 MMOL/L (136-145)
--- NOTE | 2019-11-25 07:29 | NUR ---
HAND-OFF: Report given to uJanita PRICE.
--- NOTE | 2019-11-25 07:30 | NUR ---
NURSE NOTES: Received report from Sulaiman PRICE. Patient is asleep during rounds, no acute distress noted, RR even and unlabored. Bilateral soft wrist restrains in place, checked for tightness, no redness of irritation noted around restraints. IVF running per order. Fall precautions maintained. Side rails upx2, bed low and locked, call light within reach.
[2019-11-25 08:00] VITALS: BP 128/78
[2019-11-25] MEDS: D5 1/2NS 1,000 ML IV SCH (08:38)
[2019-11-25] MEDS ORDERED: Levofloxacin 500mg tab ORAL SCH (09:00)
[2019-11-25] MEDS ORDERED: Lisinopril 10mg tab ORAL SCH (09:00)
--- NOTE | 2019-11-25 09:04 | General Progress Note ---
Assessment/Plan Problem List: (1) Weakness generalized ICD Codes: R53.1 - Weakness SNOMED: 25239567 (2) Flu-like symptoms ICD Codes: R68.89 - Other general symptoms and signs SNOMED: 438630091 (3) Dyspnea ICD Codes: R06.00 - Dyspnea, unspecified SNOMED: 652858840 Qualifiers: Qualified Codes: R06.00 - Dyspnea, unspecified (4) Pneumonia ICD Codes: J18.9 - Pneumonia, unspecified organism SNOMED: 486191870 Qualifiers: Qualified Codes: J18.9 - Pneumonia, unspecified organism (5) Psychiatric disorder ICD Codes: F99 - Mental disorder, not otherwise specified SNOMED: 82082179 Status: stable, progressing Assessment/Plan: o2 pulm tx abx psyc tx pt diet eval cbc bmp am dc if clear Subjective Constitutional: Reports: weakness Allergies: Coded Allergies: No Known Allergies (Unverified , 12/09/15) All Systems: reviewed and negative except above Subjective sl confused in bed Objective Last 24 Hour Vital Signs Date Time Temp Pulse Resp B/P (MAP) Pulse Ox O2 Delivery O2 Flow Rate FiO2 11/25/19 08:00 98.2 83 18 128/78 (95) 98 11/25/19 04:00 98.3 79 21 133/83 (100) 90 11/25/19 00:00 98.1 83 20 155/100 (118) 95 11/24/19 21:00 Room Air 11/24/19 20:00 99.9 86 20 156/81 (106) 95 11/24/19 19:37 95 Nasal Cannula 2.0 28 11/24/19 16:00 97.5 79 18 134/82 (99) 94 11/24/19 12:00 87 11/24/19 12:00 98.1 69 18 128/69 (88) 98 11/24/19 09:17 133/84 Intake and Output 11/24/19 11/25/19 18:59 06:59 Intake Total 300 ml 920 ml Balance 300 ml 920 ml Intake Oral 300 ml 200 ml IV Total 720 ml # Voids 5 Laboratory Tests 11/25/19 05:15: White Blood Count 6.4, Red Blood Count 5.08, Hemoglobin 15.9, Hematocrit 45.3, Mean Corpuscular Volume 89, Mean Corpuscular Hemoglobin 31.3H, Mean Corpuscular Hemoglobin Concent 35.0, Red Cell Distribution Width 12.6, Platelet Count 216, Mean Platelet Volume 6.9, Neutrophils (%) (Auto) 46.4, Lymphocytes (%) (Auto) 39.0, Monocytes (%) (Auto) 8.8, Eosinophils (%) (Auto) 4.3H, Basophils (%) (Auto ) 1.5, Sodium Level 144, Potassium Level 3.9, Chloride Level 107, Carbon Dioxide Level 32, Anion Gap 5, Blood Urea Nitrogen 10, Creatinine 0.9, Estimat Glomerular Filtration Rate > 60, Glucose Level 99, Calcium Level 9.1 Height (Feet): 5 Height (Inches): 9.00 Weight (Pounds): 142 General Appearance: lethargic EENT: normal ENT inspection Neck: normal alignment Cardiovascular: normal peripheral pulses, normal rate, regular rhythm Respiratory/Chest: chest wall non-tender, lungs clear, normal breath sounds Abdomen: normal bowel sounds, non tender, soft Extremities: normal inspection Edema: no edema noted Arm (L), no edema noted Arm (R), no edema noted Leg (L), no edema noted Leg (R), no edema noted Pedal (L), no edema noted Pedal (R), no edema noted Generalized Neurologic: motor weakness Skin: normal pigmentation, warm/dry William Rockwell DO Nov 25, 2019 09:04
[2019-11-25] MEDS: Heparin 5000 units/ml inj SUBQ SCH (09:40)
--- NOTE | 2019-11-25 10:32 | Pulmonology Progress Note ---
Assessment/Plan Assessment/Plan IMPRESSION: 1. Subjective dyspnea. 2. Acute bronchitis. 3. Borderline hypoxemia. Now resolved DISCUSSION: ER documents a left lower lobe infiltrate. Final radiology reading denotes normal CXR. 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 OK to discharge on empiric PO abx Wu Cruz M.D. Subjective Interval Events: None new reported Constitutional: Reports: no symptoms HEENT: Repors: no symptoms Respiratory: Reports: no symptoms Cardiovascular: Reports: no symptoms Gastrointestinal/Abdominal: Reports: no symptoms Allergies: Coded Allergies: No Known Allergies (Unverified , 12/09/15) Objective Last 24 Hour Vital Signs Date Time Temp Pulse Resp B/P (MAP) Pulse Ox O2 Delivery O2 Flow Rate FiO2 11/25/19 09:40 128/78 11/25/19 08:00 98.2 83 18 128/78 (95) 98 11/25/19 04:00 98.3 79 21 133/83 (100) 90 11/25/19 00:00 98.1 83 20 155/100 (118) 95 11/24/19 21:00 Room Air 11/24/19 20:00 99.9 86 20 156/81 (106) 95 11/24/19 19:37 95 Nasal Cannula 2.0 28 11/24/19 16:00 97.5 79 18 134/82 (99) 94 11/24/19 12:00 87 11/24/19 12:00 98.1 69 18 128/69 (88) 98 Intake and Output 11/24/19 11/25/19 19:00 07:00 Intake Total 360 ml 920 ml Balance 360 ml 920 ml Intake Oral 300 ml 200 ml IV Total 60 ml 720 ml # Voids 5 General Appearance: no acute distress HEENT: normocephalic Respiratory/Chest: chest wall non-tender, lungs clear Cardiovascular: normal peripheral pulses, normal rate Abdomen: normal bowel sounds Laboratory Tests 11/25/19 05:15: White Blood Count 6.4, Red Blood Count 5.08, Hemoglobin 15.9, Hematocrit 45.3, Mean Corpuscular Volume 89, Mean Corpuscular Hemoglobin 31.3H, Mean Corpuscular Hemoglobin Concent 35.0, Red Cell Distribution Width 12.6, Platelet Count 216, Mean Platelet Volume 6.9, Neutrophils (%) (Auto) 46.4, Lymphocytes (%) (Auto) 39.0, Monocytes (%) (Auto) 8.8, Eosinophils (%) (Auto) 4.3H, Basophils (%) (Auto ) 1.5, Sodium Level 144, Potassium Level 3.9, Chloride Level 107, Carbon Dioxide Level 32, Anion Gap 5, Blood Urea Nitrogen 10, Creatinine 0.9, Estimat Glomerular Filtration Rate > 60, Glucose Level 99, Calcium Level 9.1 Current Medications Medications (Trade) Dose Ordered Sig/Reyna Route PRN Reason Start Time Stop Time Status Last Admin Dose Admin Albuterol/ Ipratropium (Albuterol/ Ipratropium) 3 ml Q6H PRN HHN Shortness of Breath 11/24/19 15:30 11/27/19 15:29 Dextrose/Sodium Chloride 1,000 ml @ 60 mls/hr [id number] IV 11/24/19 15:30 12/22/19 06:29 11/25/19 08:38 Famotidine (Pepcid) 20 mg DAILY ORAL 11/25/19 09:00 12/22/19 08:59 Heparin Sodium (Porcine) (Heparin 5000 units/ml) 5,000 units EVERY 12 HOURS SUBQ 11/24/19 21:00 12/22/19 08:59 11/25/19 09:40 Levofloxacin (Levaquin) 500 mg DAILY ORAL 11/25/19 09:00 11/29/19 10:34 11/25/19 09:39 Lisinopril (ZestriL) 10 mg DAILY ORAL 11/25/19 09:00 12/22/19 08:59 11/25/19 09:40 Lorazepam (Ativan) 1 mg Q6H PRN ORAL For Anxiety 11/24/19 21:30 12/01/19 21:29 11/24/19 21:38 Ondansetron HCl (Zofran) 4 mg Q6H PRN IVP Nausea & Vomiting 11/24/19 18:00 Risperidone (RisperDAL) 3 mg BEDTIME ORAL 11/24/19 21:00 12/23/19 20:59 11/24/19 20:19 Wu Cruz MD Nov 25, 2019 10:32
[2019-11-25 12:00] VITALS: BP 129/79
--- NOTE | 2019-11-25 12:04 | NUR ---
DISCHARGE PLANNED*-* PATIENT HAS BEEN ACCEPTED BACK TO: [facility] SKILLED RM#29C [facility] CALLED FOR 2PM S\W DIPAK
--- NOTE | 2019-11-25 12:35 | NUR ---
NURSE NOTES: Notified Mina (next of kin listed in chart) that patient will be discharged to [facility]. Per Mina, patient received his flu vaccine in July 2019, per Mina, patient may have received pneumonia vaccine but he is unsure, will endorse to snf staff.
--- NOTE | 2019-11-25 13:37 | NUR ---
NURSE NOTES: Called and gave report to Katelyn at [facility]. Endorsed patient to receive one more day of antibiotic Levaquin, will place copy of order in packet.
--- NOTE | 2019-11-25 13:56 | NUR ---
*-* INSURANCE *-* ALL AVAILABLE CLINICALS HAVE BEEN FAXED TO: [employer] REF# [id number] PH#[phone] FAX#[phone] REVIEWS/CLINICALS
--- NOTE | 2019-11-25 14:43 | NUR ---
NURSE NOTES: Received call from IMELDA Jordan, zhang Jordan patient can no longer be discharged to SNF, patient will go back to board and care. Called Dr. Sood to inform MD patient will need written prescription for Levaquin PO to go to board and care with if MD wants patient to receive dose tomorrow, left message, awaiting callback.
--- NOTE | 2019-11-25 15:00 | Infectious Diseases Prog Note ---
Assessment/Plan Assessment/Plan Assessment: Sepsis Acute bronchitis -influenza sc neg -CXR: no acute process -Bcx NTD Fever; SP Leukocytosis, SP HTN underlying psychiatric history tobacco abuse psychiatric facility [id number] resident Plan: -Continue empiric Levaquin #4/5 -11/23 SP ceftriaxone #2 -f/u cx -Monitor CBC/CMP, temperatures -u/a w/ reflex Thank you for this consultation. Will continue to follow along with you. Discussed with RN Subjective Allergies: Coded Allergies: No Known Allergies (Unverified , 12/09/15) Subjective afebrile >48hrs no leukocytosis Bcx NTD Objective Vital Signs Last 24 Hour Vital Signs Date Time Temp Pulse Resp B/P (MAP) Pulse Ox O2 Delivery O2 Flow Rate FiO2 11/25/19 12:00 98.0 99 18 129/79 (96) 99 11/25/19 09:40 128/78 11/25/19 09:00 Room Air 11/25/19 08:00 98.2 83 18 128/78 (95) 98 11/25/19 04:00 98.3 79 21 133/83 (100) 90 11/25/19 00:00 98.1 83 20 155/100 (118) 95 11/24/19 21:00 Room Air 11/24/19 20:00 99.9 86 20 156/81 (106) 95 11/24/19 19:37 95 Nasal Cannula 2.0 28 11/24/19 16:00 97.5 79 18 134/82 (99) 94 Height (Feet): 5 Height (Inches): 9.00 Weight (Pounds): 142 Objective GENERAL: Calm in bed, oriented x1, in no acute distress. CARDIOVASCULAR: No murmur. LUNGS: Poor air exchange. ABDOMEN: Bowel sounds distant. EXTREMITIES: Show no cyanosis, clubbing, or edema. NEUROLOGIC: The patient moves all extremities, slightly weak. The patient uses a wheelchair. Laboratory Tests Test 11/25/19 05:15 White Blood Count 6.4 K/UL (4.8-10.8) Red Blood Count 5.08 M/UL (4.70-6.10) Hemoglobin 15.9 G/DL (14.2-18.0) Hematocrit 45.3 % (42.0-52.0) Mean Corpuscular Volume 89 FL (80-99) Mean Corpuscular Hemoglobin 31.3 PG (27.0-31.0) H Mean Corpuscular Hemoglobin Concent 35.0 G/DL (32.0-36.0) Red Cell Distribution Width 12.6 % (11.6-14.8) Platelet Count 216 K/UL (150-450) Mean Platelet Volume 6.9 FL (6.5-10.1) Neutrophils (%) (Auto) 46.4 % (45.0-75.0) Lymphocytes (%) (Auto) 39.0 % (20.0-45.0) Monocytes (%) (Auto) 8.8 % (1.0-10.0) Eosinophils (%) (Auto) 4.3 % (0.0-3.0) H Basophils (%) (Auto) 1.5 % (0.0-2.0) Sodium Level 144 MMOL/L (136-145) Potassium Level 3.9 MMOL/L (3.5-5.1) Chloride Level 107 MMOL/L (98-107) Carbon Dioxide Level 32 MMOL/L (21-32) Anion Gap 5 mmol/L (5-15) Blood Urea Nitrogen 10 mg/dL (7-18) Creatinine 0.9 MG/DL (0.55-1.30) Estimat Glomerular Filtration Rate > 60 mL/min (>60) Glucose Level 99 MG/DL (74-106) Calcium Level 9.1 MG/DL (8.5-10.1) Current Medications Medications (Trade) Dose Ordered Sig/Reyna Route PRN Reason Start Time Stop Time Status Last Admin Dose Admin Albuterol/ Ipratropium (Albuterol/ Ipratropium) 3 ml Q6H PRN HHN Shortness of Breath 11/24/19 15:30 11/27/19 15:29 Dextrose/Sodium Chloride 1,000 ml @ 60 mls/hr [id number] IV 11/24/19 15:30 12/22/19 06:29 11/25/19 08:38 Famotidine (Pepcid) 20 mg DAILY ORAL 11/25/19 09:00 12/22/19 08:59 Heparin Sodium (Porcine) (Heparin 5000 units/ml) 5,000 units EVERY 12 HOURS SUBQ 11/24/19 21:00 12/22/19 08:59 11/25/19 09:40 Levofloxacin (Levaquin) 500 mg DAILY ORAL 11/25/19 09:00 11/29/19 10:34 11/25/19 09:39 Lisinopril (ZestriL) 10 mg DAILY ORAL 11/25/19 09:00 12/22/19 08:59 11/25/19 09:40 Lorazepam (Ativan) 1 mg Q6H PRN ORAL For Anxiety 11/24/19 21:30 12/01/19 21:29 11/24/19 21:38 Ondansetron HCl (Zofran) 4 mg Q6H PRN IVP Nausea & Vomiting 11/24/19 18:00 Risperidone (RisperDAL) 3 mg BEDTIME ORAL 11/24/19 21:00 12/23/19 20:59 11/24/19 20:19 Katie Sood M.D. Nov 25, 2019 15:00
[2019-11-25 16:00] VITALS: BP 131/69
--- NOTE | 2019-11-25 18:00 | NUR ---
NURSE NOTES: Called [facility] and spoke with Shahriar. Endorsed patient to be discharge to facility today and prescription in packet to be sent with patient.
--- NOTE | 2019-11-25 19:01 | Progress Note ---
DATE: 11/25/2019 SUBJECTIVE: The patient is in bed. Compliant with medications. No behavior issues noted. The patient is having episodes of agitation. MENTAL STATUS EXAMINATION: Alert, confused, and . Mood is anxious. Affect is flat. Thought process is concrete. Thought content, no suicidal or homicidal ideation. Cognition is impaired. Insight and judgment is impaired. ASSESSMENT: 1. Dementia with behavior disturbance. 2. OCD and schizophrenia. PLAN: 1. We will continue risperidone 3 mg b.i.d. 2. Provide the patient with reality orientation and supportive therapy. Josué Shah M.D. DR: JOSÉ JOB#: [id number] CC:
--- NOTE | 2019-11-25 19:45 | NUR ---
NURSE NOTES: Receive a report from ALBERT Grant.
--- NOTE | 2019-11-25 19:55 | NUR ---
NURSE NOTES: Round is done. Pt is awake and is able to make his own needs but confused x2. No acute distress noted. No respiratory distress noted. Intermittent coughing noted. Encourage for coughing and for oral hydration. Planning to discharge to boarding care that he came from and waiting for transportation. Call light within reach. Will continue to monitor.
--- NOTE | 2019-11-25 19:58 | NUR ---
HAND-OFF: Report given to Donnyo RN. Endorsed to discharge patient.
--- NOTE | 2019-11-25 20:45 | NUR ---
NURSE NOTES: @2034 Transportation from [facility] came. Report the condition and provide documentation. Check the patient as their protocols. Done changed wet diaper. No skin breakdown noted on sacrum area. Kept clean and dry. Denies pain. Report given AM shift to the facility. @2044 Pt left the facility via gurney with 2 [facility] personnels with his belongings and discharge packet with prescription.
--- NOTE | 2019-11-27 10:56 | Discharge Summary ---
Discharge Summary Discharge Summary _ DATE OF ADMISSION: 11/22/2019 DATE OF DISCHARGE: 11/25/2019 DISCHARGED BY: Dr. William Rockwell CONSULTANTS: Dr. Josué Cruz BRIEF HOSPITAL COURSE: The patient is a 69-year-old male from [facility], who was brought in by EMS from psychiatric facility [facility]. Patient had reported shortness of breath and congestion. Patient was placed on nonrebreather. He denied fever or chills but has productive cough. Upon evaluation at ED, blood work showed leukocytosis with WBC elevated 12. He was hypoxic on room air. Hemoglobin and hematocrit were stable. Lactic acid normal. Troponin negative. EKG showed sinus rhythm without acute ischemic changes. Chest x-ray showed left lower lobe infiltrate. He was admitted for pneumonia. He was started on Levaquin. He was given pulmonary support. He was placed on O2 supplementation. Ceftriaxone was discontinued. Screening from influenza negative. He spiked a temperature of 106. Patient was confused and agitated. He was placed on bilateral soft wrist restraints. He was given Risperdal. He was restarted on fluvoxamine. ER document showed left lower lobe infiltrate. Final radiology reading showed normal chest x-ray. Blood culture did not isolate any growth. Patient was cleared for discharge to continue p.o. antibiotics. FINAL DIAGNOSES: Sepsis Acute bronchitis Possible pneumonia Subjective dyspnea Borderline hypoxemia Dementia with behavioral disturbance OCD and schizophrenia DISPOSITION: DC back to [facility] DISCHARGE MEDICATIONS: Refer to Discharge Medication List. DISCHARGE INSTRUCTIONS: Follow-up in a week. I have been assigned to complete a discharge summary on this account, I was not involved with the patient's management.--JARAD Guan Jacqueline Robles NP Nov 27, 2019 10:56
--- NOTE | 2019-11-28 16:52 | NUR ---
*-* INSURANCE *-* DISCHARGE SUMMARY HAS BEEN FAXED TO [employer] REF# [id number] PH#[phone] FAX#[phone] REVIEWS/CLINICALS
== END 2019-11-25 20:43 | DRG 871 ==
LOC: EDBD 01:01 → EMR 01:12 → 2E 01:42 → EDBEDREQ 02:27 → 2E 03:03 → 3E 11-24 15:25
DX: A41.9 Sepsis, unspecified organism (principal); J18.9 Pneumonia, unspecified organism; E46 Unspecified protein-calorie malnutrition; F03.91 Unspecified dementia, unspecified severity, with behavioral disturbance; J20.9 Acute bronchitis, unspecified; R09.02 Hypoxemia; F42.9 Obsessive-compulsive disorder, unspecified; F20.9 Schizophrenia, unspecified; I10 Essential (primary) hypertension; F17.200 Nicotine dependence, unspecified, uncomplicated
CPT/HCPCS: 36415; 71045; 80048; 80053; 83605; 83880; 84484; 85025; 86710; 87040; 87081; 93005; 94640; 94664; 99285; J2405; J7620